=== PATIENT | male | born 1955 | race Two or more races ===

== ENCOUNTER 2021-09-13 09:38 | Emergency (ER) | payer OTHER, MEDICAID ==
[~2021-09-13] VITALS: Ht 175.3 cm; Wt 99.8 kg
[2021-09-13] MEDS ORDERED: HYDROcodone-ACET 7.5/325MG TAB PO ONE (12:00)
[2021-09-13 12:18] LABS: Basophils # (auto) 0 10 ^3/uL (0-0.2); Basophils % (auto) 0.4 % (0.0-2.0); Eosinophils # (auto) 0.1 10 ^3/uL (0-0.8); Eosinophils % (auto) 0.5 % (0.0-7.0); Hematocrit 38.8 % (41.0-53.0); Hemoglobin 13.1 g/dL (13.5-17.5); Mean Corpuscular Hemoglobin 29.6 pg (28.0-32.0); Mean Corpuscular Hgb Conc. 33.7 g/dL (32.0-36.0); Mean Corpuscular Volume 87.7 fL (80.0-100.0); Monocytes # (auto) 0.5 10 ^3/uL (0-1.3); Monocytes % (auto) 5.2 % (0.0-12.0); Neutrophils # (auto) 8.6 10 ^3/uL (1.6-8.6); Neutrophils % (auto) 83.9 % (37.0-80.0); Nucleated Red Blood Cells % 0.1 %; Red Blood Cells 4.43 10^6/uL (4.5-5.90); Red Cell Distribution Width 14.1 % (11.8-14.3); White Blood Cell 10.2 10^3/uL (4.4-10.8)
[2021-09-13 12:30] LABS: INR 1.05 (0.9-1.15)
[2021-09-13 12:37] LABS: Albumin 3.6 g/dL (3.4-5.0); Calcium 8.6 mg/dL (8.5-10.1); Potassium 3.8 mmol/L (3.5-5.1)
[2021-09-13 12:41] LABS: BUN/Creatinine Ratio 17.6; Bilirubin, Total 0.3 mg/dL (0.2-1.0); Total Protein 7.2 g/dL (6.4-8.2)
[2021-09-13 14:21] VITALS: BP 117/65
== END 2021-09-13 14:33 | disposition short-term general hospital (02) ==
LOC: ER 09:38
DX: S82.402A Unspecified fracture of shaft of left fibula, initial encounter for closed fracture (principal); S82.202A Unspecified fracture of shaft of left tibia, initial encounter for closed fracture; Z20.822 Contact with and (suspected) exposure to COVID-19; W01.0XXA Fall on same level from slipping, tripping and stumbling without subsequent striking against object, initial encounter; Y93.01 Activity, walking, marching and hiking; Y92.89 Other specified places as the place of occurrence of the external cause; Y99.8 Other external cause status
CPT/HCPCS: 29505; 36415; 73590; 80053; 85025; 85610